=== PATIENT | male | born 1965 | race Caucasian/White ===

== ENCOUNTER → 2023-02-16 12:43 | Outpatient (CLI) | payer BC, SELFPAY ==
--- NOTE | ~2023-02-16 | MR_ITS ---
MRI of the left knee Clinical history: Pain Technique: Coronal proton density and proton density-weighted images, sagittal proton-density and T2 fat-sat images, and axial proton-density fat-saturated images were acquired. Findings: Anterior and posterior cruciate ligaments are intact. Medial collateral ligament and the la teral collateral ligament complex are intact. Popliteus tendon is intact. No lateral meniscal tear seen. There is prominent horizontal tear of the posterior horn of the medial meniscus, probably extending to the body segment. There is a grade 4 chondral fissure at the medial patellar facet with focal subchondral cystic change . Remainder of the articular cartilage in these relatively well-preserved. No other bone marrow signa l abnormality seen. Extensor mechanism is intact. There is minimal joint effusion, with [id number] Grubbs's cyst. Impression: Horizontal tear of the posterior horn and body of the medial meniscus. Focal grade 4 chondral fissure at the medial patellar facet. [id number] Grubbs's cyst. Reviewed, dictated and finalized at [facility]. IRONER HAND Impression: Horizontal tear of the posterior horn and body of the medial meniscus. Focal grade 4 chondral fissure at the medial patellar facet. [id number]-[id number]-wyeuacme Grubbs's cyst.
== END ==
PROVIDERS: PCP Hospitalist; Visit Provider Physician Assistant
DX: S83.242A Other tear of medial meniscus, current injury, left knee, initial encounter (principal); X58.XXXA Exposure to other specified factors, initial encounter; M71.22 Synovial cyst of popliteal space [Baker], left knee
CPT/HCPCS: 73721